=== PATIENT | female | born 1950 | race Caucasian/White ===

== ENCOUNTER → 2017-08-08 | Outpatient (CLI) | payer OTHER, BC | LOC: BMCIMAGING 13:46 | PROVIDERS: ATTEND Internal Medicine | DX: Z12.31 Encounter for screening mammogram for malignant neoplasm of breast (principal) | CPT/HCPCS: G0202 ==

== ENCOUNTER 2018-03-09 13:16 | Emergency (ER) | payer OTHER, BC ==
[2018-03-09] MEDS ORDERED: METOCLOPRAMIDE 10 MG/2 ML VIAL IVP ONE (14:39)
[2018-03-09] MEDS ORDERED: NS 1,000 ML IV ONE (14:39)
--- NOTE | 2018-03-09 14:39 | EDPHY ---
HPI/HX/ROS/PE/MDM Narrative: CHIEF COMPLAINT: Headache and neck pain HPI: The patient is a 67 y/o female arriving at the referral of her PCP for evaluation of an acute left-sided headache and neck pain that began 2 weeks ago and has progressively worsened since onset. She describes pain that waxes and wanes during the day, but is usually worse at night. The pain can move somewhat along the left parietal side of her head and sometimes feels more like a pressure. She describes it as sharp and throbbing, sometimes so severe that even touching the pillow hurts. Her head and neck pain is worse when turning her head side to side, but particularly to the left. Pain is also worse with bending over, blowing her nose, coughing, or even eating. She denies dizziness, vision changes, weakness, paresthesias, confusion, speech difficulty, fever, recent illness, recent trauma or chiropractic manipulation. She's had no improvement with NSAIDs at home. She is normally healthy. She can reproduces symptoms by turning her head to the left. REVIEW OF SYSTEMS: Aside from elements discussed in the HPI, a comprehensive 10-point review of systems was reviewed and is negative. PMH: Hypothyroidism, hysterectomy, fracture repairs SOCIAL HISTORY: . Business owner/photographer. PCP: Dr. Roberts. PHYSICAL EXAM: General:Patient is alert, in no acute distress. Head: Normocephalic. Mild tenderness to palpation at left occipital protuberance which reproduces symptoms. ENT:Eyes are normal to inspection. ENT inspection normal. PERRL Neck: Normal inspection. No tenderness of vessel sheaths bilaterally. No bruit. Respiratory:No respiratory distress. Breath sounds normal bilaterally. Cardiovascular: Regular rate and rhythm. Strong peripheral pulses. Normal cap refill. Abdomen:The abdomen is nontender to palpation. There are no peritoneal signs. Back: Normal to inspection. No tenderness to palpation. Skin: Normal color. No rash. Warm and dry. Extremities: Normal appearance. Full range of motion. Neuro: Oriented x3. Normal motor function. Normal sensory function. Face symmetric. Normal gait. No pronator drift. Cranial nerves intact. ED Course: This is a healthy 67 y/o female who presents with a 2-week history of neck and left-sided head pain that is worse with range of motion of her neck. Her neuro exam is normal. Plan for IV, labs, head CT, and symptom management. 10mg IV Reglan, 25mg IV Benadryl, and 1L IV NS ordered. 1500: Patient care signed out to Dr. Bustamante at shift change pending CT results and symptom improvement. MDM: This patient presents with two weeks of constant headache of gradual onset. Her symptoms appear to be focused primarily on her left upper neck, and she describes exacerbation and reproduction of pain with neck movement. She has no focal neuro deficitis whatsoever, and no complaint of ataxia or balance issue to suggest vertebral artery dissection. There are no infectious signs. Her CTH is negative for tumor, CVA or other abnormality. The nature of her symptoms does not seem consistent with SAH. I offered further workup in the ED to include MRI/A of brain and neck to fully exclude vascular abnormality such as vert aa. dissection or aneursym, or musculoskeletal disease but patient declines this. We agreed on a plan to try an dose of decadron here in the ED as well as neurontin and flexeril at home. She promises to follow-up with her PCP and to return to the ED for further workup if symptoms progress or fail to improve. The patient understands that the etiology of her symptoms is unknown. Given the fact that she has remained stable after two weeks of constant pain, and has a negative CTH, I think she is relatively safe for outpatient workup. - Data Points Imaging Results: Imaging Impressions Head CT 03/09/18 14:39 Impression: Normal CT of the head. Specifically, a headache source is not identified. Results called and discussed with Brown Ahuja MD on 03/09/2018 at 15:26. Laboratory Results: Laboratory Results 03/09/18 14:55 03/09/18 14:55 03/09/18 03/09/18 14:55 14:55 WBC 8.48 10^3/uL 10^3/uL (3.80-9.50) RBC 4.69 10^6/uL 10^6/uL (4.18-5.33) Hgb 14.4 g/dL g/dL (12.6-16.3) Hct 41.7 % % (38.0-47.0) MCV 88.9 fL fL (81.5-99.8) MCH 30.7 pg pg (27.9-34.1) MCHC 34.5 g/dL g/dL (32.4-36.7) RDW 12.2 % % (11.5-15.2) Plt Count 314 10^3/uL 10^3/uL (150-400) MPV 9.5 fL fL (8.7-11.7) Neut % (Auto) 65.6 % % (39.3-74.2) Lymph % (Auto) 22.6 % % (15.0-45.0) [place] % (Auto) 7.1 % % (4.5-13.0) Eos % (Auto) 3.5 % % (0.6-7.6) Baso % (Auto) 0.7 % % (0.3-1.7) Nucleat RBC Rel Count 0.0 % % (0.0-0.2) Absolute Neuts (auto) 5.56 10^3/uL 10^3/uL (1.70-6.50) Absolute Lymphs (auto) 1.92 10^3/uL 10^3/uL (1.00-3.00) Absolute Monos (auto) 0.60 10^3/uL 10^3/uL (0.30-0.80) Absolute Eos (auto) 0.30 10^3/uL 10^3/uL (0.03-0.40) Absolute Basos (auto) 0.06 10^3/uL 10^3/uL (0.02-0.10) Absolute Nucleated RBC 0.00 10^3/uL 10^3/uL (0-0.01) Immature Gran % 0.5 % % (0.0-1.1) Immature Gran # 0.04 10^3/uL 10^3/uL (0.00-0.10) Sodium 141 mEq/L mEq/L (135-145) Potassium 4.2 mEq/L mEq/L (3.3-5.0) Chloride 103 mEq/L mEq/L (97-110) Carbon Dioxide 26 mEq/l mEq/l (22-31) Anion Gap 12 mEq/L mEq/L (8-16) BUN 23 mg/dL mg/dL (7-23) Creatinine 0.6 mg/dL mg/dL (0.6-1.0) Estimated GFR > 60 Glucose 107 mg/dL H mg/dL (70-100) Calcium 10.3 mg/dL mg/dL (8.5-10.4) Medications Given: Discontinued Medications Diphenhydramine HCl (Benadryl Injection) 25 mg IVP EDNOW ONE Stop: 03/09/18 14:40 Last Admin: 03/09/18 15:09 Dose: Not Given Sodium Chloride (Ns) 1,000 mls @ 0 mls/hr IV ONCE ONE; Wide Open PRN Reason: Protocol Stop: 03/09/18 14:40 Last Admin: 03/09/18 14:58 Dose: 1,000 mls Metoclopramide HCl (Reglan Injection) 10 mg IVP EDNOW ONE Stop: 03/09/18 14:40 Last Admin: 03/09/18 15:19 Dose: 10 mg General Time Seen by Provider: 03/09/18 14:29 Initial Vital Signs: Initial Vital Signs Temperature (C) 36.8 C 03/09/18 13:24 Heart Rate 76 03/09/18 13:24 Respiratory Rate 16 03/09/18 13:24 Blood Pressure 144/64 H 03/09/18 13:24 O2 Sat (%) 95 03/09/18 13:24 O2 Delivery Mode Room Air Allergies/Adverse Reactions: penicillin G [Penicillin G] Allergy (Unknown, Verified 03/09/18 13:23) Rash Sulfa (Sulfonamide Antibiotics) Allergy (Unknown, Verified 03/09/18 13:23) UNSURE SEASONAL Allergy (Mild, Uncoded 03/09/18 13:23) NASAL CONGESTION Home Medications: Medication Instructions Recorded Estrogens,Conjugated [Premarin 0.625 mg PO DAILY 04/27/12 0.625 MG (RX)] Etodolac [ETODOLAC] 400 mg PO DAILY 04/27/12 Herbals/Supplements -Info Only 1 each PO AD 04/27/12 Multivitamins [Multivitamin (OTC)] 1 each PO DAILY 04/27/12 [place]-3 Fatty Acids [Fish Oil 1000 1,000 mg PO DAILY 04/27/12 mg (OTC)] Cyclobenzaprine [Flexeril] 10 mg PO TID #15 tab 03/09/18 Gabapentin [Neurontin 300 MG (*)] 300 mg PO HS #14 cap 03/09/18 Levothyroxine 03/09/18 Departure - Departure Disposition: Home, Routine, Self-Care Clinical Impression: Headache Qualifiers: Headache type: other headache syndrome Qualified Code(s): G44.89 - Other headache syndrome Condition: Good Instructions: Acute Headache (ED) Additional Instructions: We recommend that you follow-up with your primary doctor on Monday if not feeling better. You may benefit from an MRI of your brain/neck. Return to the ED for fever, vision changes, numbness, worsening headache or other concerns. Referrals: Caterina Roberts MD [Primary Care Provider] - As per Instructions Ryder Benavides MD [Medical Doctor] - As per Instructions Prescriptions: Cyclobenzaprine [Flexeril] 10 mg PO TID #15 tab Gabapentin [Neurontin 300 MG (*)] 300 mg PO HS #14 cap Report Scribed for: Brown Ahuja Report Scribed by: Melany Gil Date of Report: 03/09/18 Time of Report: 14:39 Physician Review and Approval Statement: Portions of this note were transcribed by an ED scribe. I personally performed the history, physical exam, and medical decision making; and confirm the accuracy of the information in the transcribed note.
[2018-03-09 15:20] LABS: PLATELET COUNT 314 10^3/uL (150-400)
[2018-03-09] MEDS ORDERED: DEXAMETHASONE 10 MG/ML VIAL IVP ONE (15:44)
[2018-03-09 16:14] VITALS: BP 123/60
== END 2018-03-09 16:12 | disposition home or self-care (01) ==
DX: G44.89 Other headache syndrome (principal); E86.9 Volume depletion, unspecified
CPT/HCPCS: 70450; 96361; 96374; 96375; 99285; J1100; J1200; J2765

== ENCOUNTER → 2018-03-22 | Outpatient (CLI) | payer OTHER, BC ==
[~2018-03-22] MED LIST: GADOBUTROL 10 ML VIAL IVP ONE
== END ==
LOC: FIMAGING 11:55
PROVIDERS: ATTEND Internal Medicine
DX: R51 Headache (principal)
CPT/HCPCS: 70553; A9585

== ENCOUNTER 2018-04-13 15:39 | Day surgery (SDC) | payer OTHER, BC ==
[2018-04-13] MEDS ORDERED: BACITRACIN ZINC 14.2 GM OINTTUBE TP ONE (15:42)
[2018-04-13] MEDS ORDERED: EPINEPHrine 1 MG/ML INJ ONE (15:43)
[2018-04-13] MEDS ORDERED: BUPIVACAINE 0.25% 30 ML SDV ONE (15:43)
[2018-04-13] MEDS ORDERED: LR 1,000 ML IV ONE (15:56)
--- NOTE | 2018-04-13 16:51 | PDGENHP ---
History & Physical Chief Complaint: Temporal arteritis History of Present Illness: Head aches and labs concerning for temporal arteritis Pertinent Past, Social, Family History: Reviewed Relevant Physical Exam: NAD. NC/AT, no ttp at TAs. HEENT clear. CTA. RR Cardiorespiratory Assessment: Appropriate for LEFT TA biopsy.
--- NOTE | 2018-04-13 16:55 | PDANEPAE ---
ANE Past Medical History - Pulmonary History Hx Oxygen in Use at Home: No Hx Sleep Apnea: No - Endocrine History Hx Diabetes: No Hypothyroid: Yes ANE Review of Systems Review of Systems: ANE Patient History - Allergies Allergies/Adverse Reactions: penicillin G [Penicillin G] Allergy (Unknown, Verified 03/09/18 13:23) Rash Sulfa (Sulfonamide Antibiotics) Allergy (Unknown, Verified 03/09/18 13:23) UNSURE SEASONAL Allergy (Mild, Uncoded 03/09/18 13:23) NASAL CONGESTION - Home Medications Home Medications: Estrogens,Conjugated [Premarin 0.625 MG (RX)] 0.625 mg PO DAILY 04/27/12 [Last Taken Unknown] Etodolac [ETODOLAC] 400 mg PO DAILY 04/27/12 [Last Taken Unknown] Herbals/Supplements -Info Only 1 each PO AD 04/27/12 [Last Taken Unknown] Multivitamins [Multivitamin (OTC)] 1 each PO DAILY 04/27/12 [Last Taken Unknown] [place]-3 Fatty Acids [Fish Oil 1000 mg (OTC)] 1,000 mg PO DAILY 04/27/12 [Last Taken Unknown] Levothyroxine 03/09/18 [Last Taken Unknown] - NPO status NPO Since - Liquids (Date): 04/13/18 NPO Since - Liquids (Time): 12:00 NPO Since - Solids (Date): 04/13/18 NPO Since - Solids (Time): 06:00 - Smoking Hx Smoking Status: Never smoked ANE Labs/Vital Signs - Vital Signs Blood Pressure: 116/58 Heart Rate: 65 Respiratory Rate: 18 O2 Sat (%): 95 Height: 167.64 cm Weight: 74.389 kg ANE Physical Exam - Airway Mallampati Score: Class 2 - ASA Status ASA Status: II ANE Anesthesia Plan Anesthesia Plan: GA w LMA
[2018-04-13] MEDS ORDERED: MIDAZOLAM 2 MG/2 ML VIAL ONE (16:59)
[2018-04-13] MEDS ORDERED: fentaNYL 100 MCG/2 ML INJ ONE (17:00)
[2018-04-13] MEDS ORDERED: PROPOFOL 200 MG/20 ML VIAL ONE (17:01)
[2018-04-13] MEDS ORDERED: LIDOCAINE 2% JELLY 5 ML TUBE ONE (17:02)
[2018-04-13] MEDS ORDERED: ONDANSETRON 4 MG/2 ML VIAL ONE (17:02)
[2018-04-13] MEDS ORDERED: METOCLOPRAMIDE 10 MG/2 ML VIAL ONE (17:02)
[2018-04-13] MEDS ORDERED: NALOXONE HCL 0.4 MG/ML INJ IVP PRN (18:11)
[2018-04-13] MEDS ORDERED: fentaNYL 100 MCG/2 ML INJ IVP PRN (18:11)
[2018-04-13] MEDS ORDERED: PROMETHAZINE HCL 25 MG/ML INJ IVP PRN (18:11)
[2018-04-13] MEDS ORDERED: LR 500 ML IV PRN (18:11)
--- NOTE | 2018-04-13 18:12 | POSTANESTH ---
Post Anesthetic Evaluation Cardiovascular Status: Normal, Stable Respiratory Status: Normal, Stable Level of Consciousness/Mental Status: Can Participate in Eval Pain Control: Adequate, Prn Tx Ordered Nausea/Vomiting Control: Adequate, Prn Tx Ordered Complications Possibly Related to Anesthesia: None Noted
--- NOTE | 2018-04-13 18:25 | POSTOPPROG ---
Post Op Note Date of Operation: 04/13/18 Surgeon: Keith Sanabria Anesthesia: GET(General Endotracheal) Pre-op Diagnosis: Nasal obstruction Post-op Diagnosis: Nasal obstruction Indication: Nasal obstruction Procedure: Septo, turb Findings: Nasal obstruction Inf/Abcess present in the surg proc area at time of surgery?: No Depth: Deep Incisional (Fascial) EBL: Minimal
[2018-04-13] MEDS ORDERED: HYDROCODONE/APAP 5/325 TAB PO PRN (18:27)
[2018-04-13 20:03] VITALS: BP 116/53
--- NOTE | 2018-05-02 16:14 | GOP ---
[f rep st] OPERATIVE REPORT DATE OF OPERATION: 04/13/2018 SURGEON: Keith Sanabria MD ANESTHESIA: General. PREOPERATIVE DIAGNOSIS: Temporal arteritis. POSTOPERATIVE DIAGNOSIS: Temporal arteritis. PROCEDURE PERFORMED: Left temporal artery biopsy. FINDINGS: SPECIMENS: Left temporal artery. ESTIMATED BLOOD LOSS: Minimal. INDICATIONS: Patient was seen in outpatient clinic and had inflammatory indicators and symptoms conc erning for temporal arteritis. Given her history and findings, she was determined to be an appropria te candidate for the above-stated procedure. The risks, benefits, alternatives to the procedure were explained at length to the patient who stated she understood and agreed. DESCRIPTION OF PROCEDURE: Patient was brought to the operating room by Anesthesiology and placed on the operating table. Once appropriate level of anesthesia was achieved, the left temporal artery was found and traced with the use of a Doppler and marking pen. Once this tracing was completed from th e preauricular tissues on up into the scalp, the patient was prepped and draped in usual fashion. A 15 blade was used to make a scalp incision along the tracing above the hairline. A 3 cm incision w as created. Bovie electrocautery was used to then dissect in a subcutaneous plane through the scalp. Blunt dissection was then used to find and localize the artery. Once the artery was localized, it was dissected from its surrounding tissues from inferiorly to superiorly. Small Ligaclips were place d at the superior and inferior aspects of the dissection. The artery was then dissected free with sc issors and sent in formalin for final pathology. The surgical bed was inspected for bleeding, none was found. The site was irrigated with copious nor mal saline. Subcutaneous tissues were reapproximated with 4-0 buried interrupted chromic sutures. T he scalp skin was reapproximated in a subcuticular fashion with 4-0 Monocryl. The patient tolerated this procedure well, was extubated in the operating room prior to being transferred in good condition to postanesthesia care unit. COMPLICATIONS: None. /[id number]/MODL
== END 2018-04-13 19:33 | disposition home or self-care (01) ==
LOC: FSGY 15:39 → EDSTATUS 16:30 → FSGY 19:33
PROVIDERS: ATTEND Otolaryngology
PROC: 03BT3ZX Excision of Left Temporal Artery, Percutaneous Approach, Diagnostic (ICD-10-PCS; principal; 2018-04-13 16:30)
DX: M31.6 Other giant cell arteritis (principal); E03.9 Hypothyroidism, unspecified
CPT/HCPCS: J0171; J2250; J2405; J2704; J2765; J3010

== ENCOUNTER → 2018-06-21 | Outpatient (CLI) | payer OTHER, BC | LOC: FIMAGING 13:01 | PROVIDERS: ATTEND Internal Medicine Rheumatology | DX: Z13.820 Encounter for screening for osteoporosis (principal); M85.89 Other specified disorders of bone density and structure, multiple sites; M31.6 Other giant cell arteritis; I31.3 Pericardial effusion (noninflammatory); E03.9 Hypothyroidism, unspecified; Z78.0 Asymptomatic menopausal state; Z87.81 Personal history of (healed) traumatic fracture; Z79.52 Long term (current) use of systemic steroids; Z79.890 Hormone replacement therapy | CPT/HCPCS: 70548; 77080; A9585; C8909 ==

== ENCOUNTER → 2018-08-16 | Outpatient (CLI) | payer OTHER, BC | LOC: BMCIMAGING 13:58 | PROVIDERS: ATTEND Internal Medicine | DX: Z12.31 Encounter for screening mammogram for malignant neoplasm of breast (principal) ==

== ENCOUNTER → 2019-04-01 | Outpatient (CLI) | payer OTHER, BC | LOC: BMCIMAGING 13:46 ==